=== PATIENT | male | born 1995 | race Caucasian/White ===

== ENCOUNTER → 2022-04-26 11:16 | Outpatient (BNVA) | payer SELFPAY | PROVIDERS: Family Provider Family Medicine; Visit Provider Emergency Medicine | DX: J02.9 Acute pharyngitis, unspecified (principal); J02.8 Acute pharyngitis due to other specified organisms; B97.89 Other viral agents as the cause of diseases classified elsewhere; R09.82 Postnasal drip | CPT/HCPCS: 87071; 87880 ==